=== PATIENT | female | born 2000 | race Caucasian/White ===

== ENCOUNTER 2021-03-02 14:14 | Emergency (ER) | payer OTHER ==
[2021-03-02 14:54] LABS: BASOPHIL 0.4 % (0-2); EOSINOPHIL 0.8 % (0-5); HCT 35.7 % (37.0-47.0); HGB 12.2 g/dl (12.5-16.0); LYMPHOCYTE 27.4 % (15-48); MCH 30.4 pg (25.0-31.0); MCHC 34.2 g/dL (32.0-36.0); MONOCYTE 7.3 % (0-12); MPV 9.5 fL (6.0-9.5); NEUTROPHIL 63.8 % (41-80); NRBC 0; PLT 238 K/uL (150-400); RBC 4.01 M/uL (4.20-5.40); RDW 12.1 % (11.5-14.0); WBC 7.3 K/uL (4.0-10.5)
[2021-03-02 15:12] LABS: BUN/CREAT RATIO (CALC) 9.4 RATIO; CREATININE 0.85 mg/dL (0.51-0.95); POTASSIUM 3.9 mmol/L (3.5-5.1)
== END 2021-03-02 17:15 | disposition home or self-care (01) ==
LOC: FER 14:14
PROVIDERS: Nurse Practitioner Family
DX: M94.0 Chondrocostal junction syndrome [Tietze] (principal); Z88.1 Allergy status to other antibiotic agents; Z88.8 Allergy status to other drugs, medicaments and biological substances
CPT/HCPCS: 36415; 71045; 71275; 80048; 84484; 85025; 85379; 86140; 93005; J1885; J7030; Q9967

== ENCOUNTER 2021-03-27 15:53 | Emergency (ER) | payer OTHER ==
[2021-03-27 16:51] LABS: BASOPHIL 0.4 % (0-2); EOSINOPHIL 0.1 % (0-5); HCT 37.1 % (37.0-47.0); HGB 12.8 g/dl (12.5-16.0); LYMPHOCYTE 18.2 % (15-48); MCH 30.6 pg (25.0-31.0); MCHC 34.5 g/dL (32.0-36.0); MCV 88.8 fL (78.0-100.0); MONOCYTE 4.9 % (0-12); MPV 9.8 fL (6.0-9.5); NEUTROPHIL 76.2 % (41-80); NRBC 0; PLT 215 K/uL (150-400); RBC 4.18 M/uL (4.20-5.40); RDW 11.9 % (11.5-14.0)
[2021-03-27 17:14] LABS: BILIRUBIN NEGATIVE (NEGATIVE); BLOOD NEGATIVE Ery/uL (NEGATIVE); CLARITY CLEAR (CLEAR); COLOR YELLOW (YELLOW); GLUCOSE (U) NORMAL (NORMAL); LEUKOCYTES NEGATIVE Leu/uL (NEGATIVE); NITRITE NEGATIVE (NEGATIVE); PROTEIN NEGATIVE (NEGATIVE); UROBILINOGEN 0.2 mg/dL (0.2-1.0)
[2021-03-27 17:18] LABS: INR 1.08 (0.9-1.2); PROTHROMBIN TIME 13.4 SECONDS (11.8-13.4)
[2021-03-27 17:23] LABS: AMPHETAMINES NEGATIVE (NEGATIVE); BARBITURATES NEGATIVE (NEGATIVE); ECSTASY (MDMA) NEGATIVE (NEGATIVE); MARIJUANA (THC) NEGATIVE (NEGATIVE); METHADONE NEGATIVE (NEGATIVE); OPIATES NEGATIVE (NEGATIVE); OXYCODONE NEGATIVE (NEGATIVE)
[2021-03-27 17:31] LABS: ALBUMIN 3.6 g/dL (3.4-5.0); BILIRUBIN - TOTAL 0.4 mg/dL (0.2-1.0); BUN/CREAT RATIO (CALC) 12.5 RATIO; CREATININE 0.72 mg/dL (0.51-0.95); GLOBULIN (CALCULATION) 4.2 g/dL; POTASSIUM 3.8 mmol/L (3.5-5.1); TOTAL PROTEIN 7.8 g/dL (6.4-8.2)
== END 2021-03-27 19:43 | disposition home or self-care (01) ==
LOC: FER 15:53
PROVIDERS: Internal Medicine; Nurse Practitioner Family
DX: R07.89 Other chest pain (principal); Z88.1 Allergy status to other antibiotic agents; Z88.8 Allergy status to other drugs, medicaments and biological substances
CPT/HCPCS: 36415; 71045; 80053; 80305; 81003; 84484; 85025; 85610; 85730; 93005

== ENCOUNTER 2021-04-30 05:37 | Emergency (ER) | payer OTHER ==
[2021-04-30 06:10] LABS: BASOPHIL 0.4 % (0-2); EOSINOPHIL 0.4 % (0-5); HCT 37.5 % (37.0-47.0); LYMPHOCYTE 23.8 % (15-48); MCH 30.1 pg (25.0-31.0); MCHC 34.7 g/dL (32.0-36.0); MCV 86.8 fL (78.0-100.0); MONOCYTE 4.2 % (0-12); MPV 9.6 fL (6.0-9.5); NRBC 0; PLT 250 K/uL (150-400); RBC 4.32 M/uL (4.20-5.40); RDW 11.9 % (11.5-14.0); WBC 8.4 K/uL (4.0-10.5)
[2021-04-30] MEDS ORDERED: CYCLOBENZAPRINE10 MG PO (06:36)
[2021-04-30] MEDS ORDERED: NAPROSYN375 MG PO (06:36)
[2021-04-30 06:45] LABS: BILIRUBIN - TOTAL 0.3 mg/dL (0.2-1.0); CREATININE 0.89 mg/dL (0.51-0.95); GLOBULIN (CALCULATION) 3.6 g/dL; TOTAL PROTEIN 7.6 g/dL (6.4-8.2)
[2021-04-30 07:34] LABS: BILIRUBIN NEGATIVE (NEGATIVE); BLOOD NEGATIVE Ery/uL (NEGATIVE); CLARITY CLEAR (CLEAR); COLOR YELLOW (YELLOW); GLUCOSE (U) NORMAL (NORMAL); LEUKOCYTES NEGATIVE Leu/uL (NEGATIVE); NITRITE NEGATIVE (NEGATIVE); PROTEIN NEGATIVE (NEGATIVE); SPECIFIC GRAVITY <=1.005 (1.001-1.030); UROBILINOGEN 0.2 mg/dL (0.2-1.0); pH 6.5 (5.0-9.0)
[2021-04-30 07:39] LABS: BARBITURATES NEGATIVE (NEGATIVE); ECSTASY (MDMA) NEGATIVE (NEGATIVE); MARIJUANA (THC) NEGATIVE (NEGATIVE); METHADONE NEGATIVE (NEGATIVE); OPIATES NEGATIVE (NEGATIVE)
[2021-04-30 07:40] LABS: AMPHETAMINES NEGATIVE (NEGATIVE); OXYCODONE NEGATIVE (NEGATIVE)
== END 2021-04-30 07:48 | disposition home or self-care (01) ==
LOC: FER 05:37
PROVIDERS: Internal Medicine
DX: R07.89 Other chest pain (principal); M54.2 Cervicalgia; Z88.1 Allergy status to other antibiotic agents; Z88.8 Allergy status to other drugs, medicaments and biological substances
CPT/HCPCS: 36415; 71045; 80053; 80305; 81003; 84145; 84443; 84484; 85025; 93005; J2930